=== PATIENT | male | born 1995 | race Caucasian/White ===

== ENCOUNTER → 2022-10-24 08:00 | Outpatient (CLI) | payer OTHER, SELFPAY ==
--- NOTE | 2022-10-31 08:40 | PM.PFT.1 ---
Pulmonary Function Test Referral & Results Date Patient Seen: 10/24/22 Results: The spirometry demonstrates an FVC of 5.58 L which is 100% of predicted. The FEV1 was measured at 4.51 L which is 98% of predicted. The FEV1/FVC ratio was 81 which is 97% of predicted. Following the administration of bronchodilator there was to 45% improvement in FEF 25-75%. Interpretation: This study, which was done as forced spirometry only, demonstrates normal forced spirometry but there is evidence of significant benefit in small airway flow after bronchodilator administration based on improvement in FEF 25-75% as above Clinical correlation suggested
== END ==
PROVIDERS: Referring Provider Chiropractor; Visit Provider Chiropractor
DX: J45.909 Unspecified asthma, uncomplicated (principal); I51.9 Heart disease, unspecified
CPT/HCPCS: 94060